=== PATIENT | female | born 1995 | race Two or more races ===

== ENCOUNTER 2016-05-31 21:59 | Emergency (ER) | payer MEDICAID ==
[~2016-05-31] VITALS: Ht 152.4 cm; Wt 56.0 kg
[2016-05-31] MEDS ORDERED: AZITHROMYCIN 500 MG TABLET ONE (22:31)
[2016-05-31] MEDS ORDERED: CEFTRIAXONE 1,000 MG ONE (22:31)
[2016-05-31] MEDS ORDERED: ACETAMINOPHEN 325 MG TABLET ONE (23:25)
[2016-05-31] MEDS ORDERED: ACETAMINOPHEN 325 MG TABLET PO ONE (23:30)
[2016-06-01] MEDS ORDERED: NITROFURANTOIN (MACROBID) 100 MG CAPSULE PO ONE
[2016-06-01 00:23] VITALS: BP 113/72
== END 2016-06-01 00:26 | disposition home or self-care (01) ==
LOC: ED 23:59
DX: O23.11 Infections of bladder in pregnancy, first trimester (principal); Z3A.00 Weeks of gestation of pregnancy not specified
CPT/HCPCS: 36415; 81001; 84702; 87086; 99284

== ENCOUNTER 2016-09-07 21:14 | Emergency (ER) | payer MEDICAID ==
[~2016-09-07] VITALS: Ht 152.4 cm; Wt 57.0 kg
[2016-09-07] MEDS ORDERED: ASPI-515 PO (22:04)
[2016-09-07 22:54] LABS: ASPARTATE AMINO TRANSFERASE 12 U/L (15-37); BLOOD UREA NITROGEN 10 mg/dL (7-18)
[2016-09-07 23:24] LABS: PATH.CAST-FLAG NOT PRESENT; SPERM-FLAG NOT PRESENT; SRC-FLAG NOT PRESENT; XTAL-FLAG NOT PRESENT; YLC-FLAG NOT PRESENT
[2016-09-08 00:46] VITALS: BP 100/56
== END 2016-09-08 00:48 | disposition home or self-care (01) ==
LOC: ED 23:23
DX: O20.0 Threatened abortion (principal); Z3A.19 19 weeks gestation of pregnancy
CPT/HCPCS: 36415; 76805; 80053; 81001; 84702; 85025; 86901; 99285

== ENCOUNTER 2017-11-20 19:08 | Emergency (ER) | payer MEDICAID, OTHER ==
[~2017-11-20] VITALS: Ht 154.9 cm; Wt 57.2 kg
[~2017-11-20 19:08] MED LIST: ASPI-515 PO
[2017-11-20 19:33] LABS: BASOPHILS # (AUTO) 0.01 x10^3/uL (0-0.3); BASOPHILS % (AUTO) 0 % (0-1); EOSINOPHILS # (AUTO) 0.17 x10^3/uL (0-0.8); EOSINOPHILS % (AUTO) 2 % (1-7); LYMPHOCYTES # (AUTO) 2.51 x10^3/uL (1-6.1); LYMPHOCYTES % (AUTO) 27 % (22-44); MD NO; MEAN CORPUSCULAR HEMOGLOBIN 28.4 pg (27.0-34.8); MEAN CORPUSCULAR HGB CONC 33.8 g/dL (32.4-35.8); MEAN CORPUSCULAR VOLUME 84.1 fL (80-100); MEAN PLATELET VOLUME 7.3 fL (7.4-10.4); MONOCYTES # (AUTO) 0.43 x10^3/uL (0-1.4); MONOCYTES % (AUTO) 5 % (2-9); NEUTROPHILS # (AUTO) 6.25 x10^3/uL (1.8-8.0); NEUTROPHILS % (AUTO) 67 % (42-75); PLATELET COUNT 365 x10^3/uL (130-400); RED BLOOD COUNT 5.01 x10^6/uL (3.82-5.3); RED CELL DISTRIBUTION WIDTH 14.5 % (9.6-15.2)
[2017-11-20 20:27] LABS: MICROSCOPIC AUTO
[2017-11-20 20:28] LABS: CULTURE INDICATED? NO
[2017-11-20 20:41] VITALS: BP 107/73
== END 2017-11-20 20:47 | disposition home or self-care (01) ==
LOC: ED 20:46
DX: N93.9 Abnormal uterine and vaginal bleeding, unspecified (principal); Z32.01 Encounter for pregnancy test, result positive; Z87.891 Personal history of nicotine dependence
CPT/HCPCS: 36415; 76801; 81001; 84702; 85025; 86901; 99285

== ENCOUNTER 2017-11-22 19:22 | Emergency (ER) | payer OTHER ==
[~2017-11-22] VITALS: Ht 154.9 cm; Wt 61.2 kg
[2017-11-22 20:01] LABS: MICROSCOPIC INDICATED
[2017-11-22 20:20] LABS: CULTURE INDICATED? NO
[2017-11-22 20:55] VITALS: BP 122/69
== END 2017-11-22 20:57 | disposition home or self-care (01) ==
LOC: ED 20:10
DX: O03.9 Complete or unspecified spontaneous abortion without complication (principal)
CPT/HCPCS: 36415; 81001; 84702; 99284

== ENCOUNTER 2018-02-03 22:35 | Emergency (ER) | payer OTHER ==
[~2018-02-03] VITALS: Ht 152.4 cm; Wt 67.3 kg
[2018-02-03 22:46] VITALS: BP 107/70
== END 2018-02-04 00:44 | disposition home or self-care (01) ==
LOC: ED 02-04 00:31
DX: S16.1XXA Strain of muscle, fascia and tendon at neck level, initial encounter (principal); G89.11 Acute pain due to trauma; M54.6 Pain in thoracic spine; V49.49XA Driver injured in collision with other motor vehicles in traffic accident, initial encounter; Y93.89 Activity, other specified; Y92.410 Unspecified street and highway as the place of occurrence of the external cause; Y99.8 Other external cause status
CPT/HCPCS: 72020; 72050; 72072; 99283

== ENCOUNTER 2018-04-29 17:27 | Emergency (ER) | payer OTHER ==
[~2018-04-29] VITALS: Ht 152.4 cm; Wt 59.5 kg
--- NOTE | 2018-04-29 18:24 | NUR ---
MANAGER OF DISTRIBUTION: PT IN US AT THIS TIME, TO RETURN TO ED ROOM 23 WHEN COMPLETE
--- NOTE | 2018-04-29 18:53 | NUR ---
Lab at bedside.
--- NOTE | 2018-04-29 18:58 | NUR ---
Pt resting on NAHUN fischer.
[2018-04-29 19:02] LABS: BASOPHILS # (AUTO) 0.02 x10^3/uL (0-0.1); BASOPHILS % (AUTO) 0 % (0-1); EOSINOPHILS # (AUTO) 0.17 x10^3/uL (0-0.4); EOSINOPHILS % (AUTO) 2 % (1-7); LYMPHOCYTES # (AUTO) 2.19 x10^3/uL (1-3.4); LYMPHOCYTES % (AUTO) 24 % (22-44); MD NO; MEAN CORPUSCULAR VOLUME 85.4 fL (80-100); MEAN PLATELET VOLUME 7.2 fL (7.4-10.4); MONOCYTES # (AUTO) 0.49 x10^3/uL (0.2-0.8); MONOCYTES % (AUTO) 5 % (2-9); NEUTROPHILS # (AUTO) 6.25 x10^3/uL (1.8-6.8); NEUTROPHILS % (AUTO) 69 % (42-75); PLATELET COUNT 363 x10^3/uL (130-400); RED CELL DISTRIBUTION WIDTH 13.8 % (9.6-15.2)
[2018-04-29 19:03] LABS: MICROSCOPIC NOT IND
[2018-04-29 19:06] LABS: ALBUMIN 3.9 g/dL (3.4-5.0); ANION GAP 5 mmol/L (5-15); CALCIUM 8.7 mg/dL (8.5-10.1); CHLORIDE 110 mmol/L (98-107); CREATININE 0.59 mg/dL (0.55-1.02)
--- NOTE | 2018-04-29 19:09 | NUR ---
Pt ambulated to bathroom, no assistance required.
[2018-04-29 19:15] LABS: CULTURE INDICATED? NO
[2018-04-29 19:43] VITALS: BP 104/56
--- NOTE | 2018-04-29 19:44 | NUR ---
Patient/Caregiver given discharge instructions and they have confirmed that they understand the instructions. Patient ambulatory with steady gait.
== END 2018-04-29 19:45 | disposition home or self-care (01) ==
LOC: ED 19:00
DX: O26.891 Other specified pregnancy related conditions, first trimester (principal); R10.30 Lower abdominal pain, unspecified; Z3A.01 Less than 8 weeks gestation of pregnancy
CPT/HCPCS: 36415; 76801; 80048; 81003; 82040; 84702; 85025; 99284

== ENCOUNTER 2018-07-01 14:04 | Emergency (ER) | payer SELFPAY ==
[~2018-07-01] VITALS: Ht 152.4 cm; Wt 56.4 kg
[2018-07-01 15:14] LABS: BASOPHILS # (AUTO) 0.04 x10^3/uL (0-0.1); BASOPHILS % (AUTO) 1 % (0-1); EOSINOPHILS # (AUTO) 0.26 x10^3/uL (0-0.4); EOSINOPHILS % (AUTO) 4 % (1-7); LYMPHOCYTES # (AUTO) 2.27 x10^3/uL (1-3.4); LYMPHOCYTES % (AUTO) 31 % (22-44); MD NO; MEAN CORPUSCULAR HEMOGLOBIN 28.2 pg (27.0-34.8); MEAN CORPUSCULAR HGB CONC 32.1 g/dL (32.4-35.8); MEAN CORPUSCULAR VOLUME 87.7 fL (80-100); MEAN PLATELET VOLUME 7.4 fL (7.4-10.4); MONOCYTES # (AUTO) 0.28 x10^3/uL (0.2-0.8); MONOCYTES % (AUTO) 4 % (2-9); NEUTROPHILS # (AUTO) 4.54 x10^3/uL (1.8-6.8); NEUTROPHILS % (AUTO) 61 % (42-75); PLATELET COUNT 344 x10^3/uL (130-400); RED BLOOD COUNT 4.74 x10^6/uL (3.82-5.3); RED CELL DISTRIBUTION WIDTH 14.2 % (9.6-15.2)
[2018-07-01 15:25] LABS: ALANINE AMINOTRANSFERASE 20 U/L (12-78); ALBUMIN 3.8 g/dL (3.4-5.0); ANION GAP 9 mmol/L (5-15); CALCIUM 9.2 mg/dL (8.5-10.1); CHLORIDE 109 mmol/L (98-107); CREATININE 0.76 mg/dL (0.55-1.02)
[2018-07-01 15:27] LABS: ALKALINE PHOSPHATASE 69 U/L (45-117); BILIRUBIN,TOTAL 0.1 mg/dL (0.2-1.0); TOTAL PROTEIN 7.5 g/dL (6.4-8.2)
--- NOTE | 2018-07-01 16:04 | NUR ---
RACK CLEANER: PT TO ROOM FROM [facility], AMBULATORY UPRIGHT STEADY GAIT.
[2018-07-01] MEDS ORDERED: AMOXICILLIN/CLAV 875-125MG TABLET PO ONE (16:25)
[2018-07-01] MEDS ORDERED: HYDROcodone/APAP 5/325 TABLET PO STA (16:25)
[2018-07-01] MEDS ORDERED: SODIUM CHLORIDE FLUSH 10ML SYR IVF ONE (16:30)
[2018-07-01] MEDS ORDERED: MISOPROSTOL 200 MCG TABLET PR ONE (16:30)
[2018-07-01] MEDS ORDERED: MORPHINE SULFATE 4 MG/ML, 1ML IVPush PRN (16:30)
[2018-07-01] MEDS ORDERED: AMOXICILLIN/CLAV 875-125MG TABLET ONE (16:33)
[2018-07-01] MEDS ORDERED: HYDROcodone/APAP 5/325 TABLET ONE ×2 (16:34→17:16)
--- NOTE | 2018-07-01 16:40 | NUR ---
pt medicated per emar. pt tolerated well.
--- NOTE | 2018-07-01 16:41 | NUR ---
FIRST CONTACT WITH PT. PT C/O ABD CRAMPING, VB WITH BLOOD CLOTS WORSENING. 2-3 PADS AN HOUR. PT DX WITH MISCARRIAGE 6 DAYS AGO, WAS 14 WEEKS PG. PT'S AOX4. RESPS EVEN AND UNLABORED. BP/SPO2 MONITORS IN PLACE. CALL LIGHT WITHIN REACH. EDMD AT BEDSIDE TO ASSESS NOW.
--- NOTE | 2018-07-01 16:42 | NUR ---
MEDICATION ORDERED FROM PHARMACY.
[2018-07-01] MEDS ORDERED: HYDROcodone/APAP 5/325 TABLET PO ONE (17:00)
--- NOTE | 2018-07-01 17:02 | NUR ---
REPORT GIVEN TO NATHANAEL LONDON
[2018-07-01] MEDS ORDERED: MISOPROSTOL 200 MCG TABLET PO ONE (17:30)
[2018-07-01] MEDS ORDERED: PROMETHAZINE 25 MG/ML, 1ML ONE (18:37)
--- NOTE | 2018-07-01 18:54 | NUR ---
given phenergan im with prescription per pt's nausea and vomitting pt up to the bathroom with stable gait given all dc instruction pt understood family at bed side for riding
[2018-07-01] MEDS ORDERED: PROMETHAZINE 25 MG/ML, 1ML IM ONE (19:00)
[2018-07-01 19:10] VITALS: BP 122/68
== END 2018-07-01 19:12 | disposition home or self-care (01) ==
LOC: ED 17:32
DX: O03.1 Delayed or excessive hemorrhage following incomplete spontaneous abortion (principal); R10.2 Pelvic and perineal pain
CPT/HCPCS: 36415; 76830; 80053; 85025; 96372; 99284; J2550

== ENCOUNTER 2019-01-19 13:58 | Emergency (ER) | payer MEDICAID, OTHER ==
[~2019-01-19] VITALS: Ht 152.4 cm; Wt 59.6 kg
[2019-01-19 14:53] LABS: BASOPHILS # (AUTO) 0.02 x10^3/uL (0-0.1); BASOPHILS % (AUTO) 0 % (0-1); EOSINOPHILS # (AUTO) 0.01 x10^3/uL (0-0.4); EOSINOPHILS % (AUTO) 0 % (1-7); LYMPHOCYTES # (AUTO) 1.12 x10^3/uL (1-3.4); LYMPHOCYTES % (AUTO) 23 % (22-44); MD NO; MEAN CORPUSCULAR HEMOGLOBIN 28.9 pg (27.0-34.8); MEAN CORPUSCULAR VOLUME 87.6 fL (80-100); MEAN PLATELET VOLUME 7.4 fL (7.4-10.4); MONOCYTES # (AUTO) 0.51 x10^3/uL (0.2-0.8); MONOCYTES % (AUTO) 11 % (2-9); NEUTROPHILS # (AUTO) 3.14 x10^3/uL (1.8-6.8); NEUTROPHILS % (AUTO) 65 % (42-75); PLATELET COUNT 319 x10^3/uL (130-400); RED BLOOD COUNT 5.07 x10^6/uL (3.82-5.3); RED CELL DISTRIBUTION WIDTH 14.3 % (9.6-15.2)
[2019-01-19 15:01] LABS: RAPID INFLUENZA A Negative (Negative); RAPID INFLUENZA B Negative (Negative)
[2019-01-19 15:02] LABS: CULTURE INDICATED? YES; MICROSCOPIC INDICATED
[2019-01-19 15:03] LABS: ANION GAP 8 mmol/L (5-15); CALCIUM 9.2 mg/dL (8.5-10.1); CHLORIDE 108 mmol/L (98-107)
[2019-01-19 15:08] LABS: CREATININE 0.73 mg/dL (0.55-1.02)
--- NOTE | 2019-01-19 15:21 | NUR ---
TO ROOM 11
--- NOTE | 2019-01-19 15:24 | NUR ---
PT HERE WITH C/O BODY ACHES, R/L LOWER QUADRANT ABDOMINAL PAIN, BACK PAIN, AND OCCASIONAL NAUSEA. PT DRESSED IN GOWN AND ON GURNEY, CALL LIGHT WITHIN REACH, ROOM AIR, NAD, ON MONITOR.
[2019-01-19 15:29] VITALS: BP 123/94
--- NOTE | 2019-01-19 16:18 | NUR ---
PT TO US.
[2019-01-19] MEDS ORDERED: CEFDINIR 300 MG CAPSULE ONE (16:46)
--- NOTE | 2019-01-19 16:46 | NUR ---
PT BACK FROM US.
[2019-01-19] MEDS ORDERED: KETOROLAC 30 MG/1 ML ONE (16:47)
[2019-01-19] MEDS: KETOROLAC 30 MG/1 ML IM ONE (16:50)
[2019-01-19] MEDS: CEFDINIR 300 MG CAPSULE PO ONE (16:50)
--- NOTE | 2019-01-19 16:50 | NUR ---
PT MEDICATED PER ORDERS.
--- NOTE | 2019-01-19 16:58 | NUR ---
ALL RESULTS BACK AT THIS TIME, CHART UP FOR RECHECK.
--- NOTE | 2019-01-19 17:25 | NUR ---
Patient/Caregiver given discharge instructions and they have confirmed that they understand the instructions. Patient ambulatory with steady gait.
== END 2019-01-19 18:10 | disposition home or self-care (01) ==
LOC: ED 17:35
DX: N39.0 Urinary tract infection, site not specified (principal); R50.9 Fever, unspecified; Z90.89 Acquired absence of other organs
CPT/HCPCS: 36415; 71046; 76830; 80048; 81001; 84703; 85025; 87086; 87400; 96372; 99284; J1885

== ENCOUNTER 2019-07-17 05:59 | Emergency (ER) | payer MEDICAID, OTHER ==
[~2019-07-17] VITALS: Ht 154.9 cm; Wt 64.5 kg
--- NOTE | 2019-07-17 06:17 | NUR ---
THIS IS A 23Y F THAT COMES IN AFTER FEELING TIGHTNESS/ PRESSURE IN HER STERNUM AND EPIGASTRIC AREA SINCE YESTERDAY WHEN WALKING UP STAIRS. PT STS SHE WOKE UP WITH THIS PAIN TODAY STILL. DENIES SOB/N/V/D. PT CONNECTED TO ALL MONITORING
--- NOTE | 2019-07-17 06:19 | NUR ---
pa at bedside to assess pt
[2019-07-17] MEDS ORDERED: FAMOTIDINE 20 MG TABLET ONE (06:21)
[2019-07-17] MEDS ORDERED: MAALOX/HYOSCYAMINE/LIDOCAINE 45 ML BTL ONE (06:22)
[2019-07-17] MEDS ORDERED: FAMOTIDINE 20 MG TABLET PO ONE (06:30)
[2019-07-17] MEDS ORDERED: MAALOX/HYOSCYAMINE/LIDOCAINE 45 ML BTL PO ONE (06:30)
--- NOTE | 2019-07-17 06:53 | NUR ---
REPORT TO LYNDSEY
[2019-07-17 06:55] LABS: BASOPHILS # (AUTO) 0.05 x10^3/uL (0-0.1); BASOPHILS % (AUTO) 1 % (0-1); EOSINOPHILS # (AUTO) 0.43 x10^3/uL (0-0.4); EOSINOPHILS % (AUTO) 7 % (1-7); LYMPHOCYTES # (AUTO) 2.15 x10^3/uL (1-3.4); LYMPHOCYTES % (AUTO) 33 % (22-44); MD NO; MEAN CORPUSCULAR HEMOGLOBIN 28.5 pg (27.0-34.8); MEAN CORPUSCULAR HGB CONC 33.3 g/dL (32.4-35.8); MEAN CORPUSCULAR VOLUME 85.6 fL (80-100); MEAN PLATELET VOLUME 7.2 fL (7.4-10.4); MONOCYTES # (AUTO) 0.42 x10^3/uL (0.2-0.8); MONOCYTES % (AUTO) 6 % (2-9); NEUTROPHILS # (AUTO) 3.49 x10^3/uL (1.8-6.8); NEUTROPHILS % (AUTO) 53 % (42-75); PLATELET COUNT 301 x10^3/uL (130-400); RED CELL DISTRIBUTION WIDTH 13.6 % (9.6-15.2)
[2019-07-17 07:06] LABS: ALBUMIN 3.9 g/dL (3.4-5.0); ANION GAP 9 mmol/L (5-15); CALCIUM 8.6 mg/dL (8.5-10.1); CHLORIDE 109 mmol/L (98-107); CREATININE 0.73 mg/dL (0.55-1.02)
[2019-07-17 07:11] LABS: ALANINE AMINOTRANSFERASE 21 U/L (12-78); ALKALINE PHOSPHATASE 71 U/L (45-117); BILIRUBIN,TOTAL 0.6 mg/dL (0.2-1.0); TOTAL PROTEIN 7.4 g/dL (6.4-8.2); TROPONIN I < 0.015 ng/mL (0.000-0.045)
--- NOTE | 2019-07-17 07:30 | NUR ---
pt resting in bed, call light in reach.
[2019-07-17] MEDS ORDERED: POTASSIUM CHLORIDE 20 MEQ TAB.ER.PRT ONE (07:38)
--- NOTE | 2019-07-17 07:44 | NUR ---
GRICEL PA AT BEDSIDE TO DISCUSS POC.
[2019-07-17] MEDS ORDERED: POTASSIUM CHLORIDE 20 MEQ TAB.ER.PRT PO ONE (08:00)
--- NOTE | 2019-07-17 08:38 | NUR ---
Deepali ricardo at bedside. Discharge instructions reviewed
[2019-07-17 08:39] VITALS: BP 108/73
== END 2019-07-17 08:45 | disposition home or self-care (01) ==
LOC: ED 06:15
DX: R07.89 Other chest pain (principal); K29.00 Acute gastritis without bleeding; E87.6 Hypokalemia
CPT/HCPCS: 36415; 71045; 80053; 83690; 84484; 84703; 85025; 93005; 99285